=== PATIENT | female | born 1985 | race Caucasian/White ===

== ENCOUNTER 2023-05-28 08:03 | Outpatient (CLI) | payer OTHER, SELFPAY ==
--- NOTE | 2023-05-28 08:15 | CRLHL7_ITS ---
For Patients: As a result of the Century Cures Act, medical imaging exams and procedure reports are released immediately into your electronic medical record. You may view this report before your referring provider. If you have questions, please contact your health care provider. CLINICAL HISTORY: missing IUD strings TECHNIQUE: 2D jaramillo scale and color Doppler images were acquired of the pelvis using a transvaginal approach. FINDINGS: On transvaginal imaging, the myometrium has a normal uniform echotexture. Intrauterine device is present in good position within the endometrial canal. The left ovary measures 2.6 x 1.2 x 1.3 cm in size and the right ovary measures 4.5 x 2.6 x 2.9 cm. Simple right ovarian cyst is present measuring 2.4 x 2.0 x 2.2 cm. The ovaries demonstrate normal arterial and venous blood flow on color Doppler analysis. There are no suspicious fluid collections within the cul-de-sac. IMPRESSION: Good position of the IUD within the endometrial canal. Dictated by Jarod Ortiz MD @ 05/28/2023 9:28:59 AM (Electronically Signed)
== END 2023-05-28 08:04 | disposition home or self-care (01) ==
PROVIDERS: PCP Emergency Medicine; Visit Provider Physician Assistant
DX: T83.32XA Displacement of intrauterine contraceptive device, initial encounter (principal)
CPT/HCPCS: 76830

== ENCOUNTER 2023-09-05 13:15 | Outpatient (CLI) | payer OTHER, SELFPAY | END 2023-09-05 13:16 | disposition home or self-care (01) | PROVIDERS: PCP Physician Assistant Medical; Visit Provider Physician Assistant Medical | DX: L65.9 Nonscarring hair loss, unspecified (principal) | CPT/HCPCS: 82728; 84443 ==

== ENCOUNTER 2025-04-14 08:33 | Outpatient (CLI) | payer OTHER, SELFPAY | END 2025-04-14 08:34 | disposition home or self-care (01) | LOC: NFLDREF 04-15 18:25 | PROVIDERS: PCP Physician Assistant Medical; Referring Provider Physician Assistant Medical; Visit Provider Physician Assistant Medical | DX: Z00.00 Encounter for general adult medical examination without abnormal findings (principal); E78.2 Mixed hyperlipidemia | CPT/HCPCS: 80061 ==